=== PATIENT | male | born 1985 | race African-American/Black ===

== ENCOUNTER 2021-11-27 06:32 | Observation (INO) | payer BC ==
[2021-11-25 15:46] LABS: BASOPHILS % 0.4 % (0.0-1.0); EOSINOPHILS # (AUTO) 0.1 (0.0-0.4); EOSINOPHILS % 1.8 % (0.0-6.0); HEMOGLOBIN 13.8 g/dL (14.0-18.0); LYMPHOCYTES # (AUTO) 1.7 (1.0-3.2); LYMPHOCYTES % 36.8 % (18.0-39.1); MEAN CORPUSCULAR HEMOGLOBIN 29.4 pg (28-32); MEAN CORPUSCULAR HGB CONC 32.9 g/dL (31-35); MEAN CORPUSCULAR VOLUME 89.4 fL (81-99); MONOCYTES # (AUTO) 0.3 (0.2-0.8); NEUTROPHILS # (AUTO) 2.5 (2.1-6.9); PLATELET COUNT 199 x10e3/uL (140-360); RED CELL DISTRIBUTION WIDTH 12.8 % (11.7-14.4)
[2021-11-25 15:57] LABS: ANION GAP 14.7 mmol/L (8-16); CALCIUM 9.2 mg/dL (8.4-10.2); CREATININE, SERUM 1.1 mg/dL (0.72-1.25); INR 0.9; POTASSIUM 3.7 mmol/L (3.5-5.1); PROTHROMBIN TIME 12.8 seconds (11.9-14.5)
[2021-11-25 15:58] LABS: PARTIAL THROMBOPLASTIN TIME 27.1 seconds (23.8-35.5)
[~2021-11-27] VITALS: Ht 180.3 cm; Wt 78.5 kg
[2021-11-27] MEDS ORDERED: NAPROXEN250 MG PO (06:52)
[2021-11-27] MEDS ORDERED: SODIUM CHLORIDE 0.9% 50ML 50 ML ONE (07:08)
[2021-11-27] MEDS ORDERED: HYDROCODON-ACE1 EA12 PO (10:38)
[2021-11-27] MEDS ORDERED: ZOLPIDEM TARTRATE 5 MG TAB PO PRN (10:45)
[2021-11-27] MEDS: LACTATED RINGER'S 1,000 ML IV SCH ×2 (10:45→19:05)
[2021-11-27] MEDS ORDERED: CARISOPRODOL 350 MG TAB PO PRN (10:45)
[2021-11-27] MEDS ORDERED: ONDANSETRON HCL INJ 2MG/ML 2ML 2 MG/ML VIAL IV PRN (10:45)
[2021-11-27] MEDS ORDERED: HYDROMORPHONE 2MG/ML 2 MG/ML ML IV PRN (10:45)
[2021-11-27] MEDS ORDERED: OXYCODONE/ACETAMINOPHEN 5-325 1 EACH TABLET PO PRN (10:45)
[2021-11-27] MEDS ORDERED: ACETAMINOPHEN 325 MG TAB PO PRN (10:45)
[2021-11-27] MEDS ORDERED: MAGNESIUM/ALUMINUM/SIMETHICONE 30 ML UDC PO PRN (10:45)
[2021-11-27] MEDS ORDERED: PROMETHAZINE HCL (IM) 25 MG/ML VIAL IM PRN (10:45)
[2021-11-27] MEDS ORDERED: SUGAMMADEX SODIUM 200 MG/2 ML VIAL IV ONE (10:55)
[2021-11-27] MEDS ORDERED: ROCURONIUM BROMIDE 10 MG/ML 5ML VIAL IV ONE (12:28)
[2021-11-27] MEDS ORDERED: POVIDONE IODINE 0.05% 0.05 % ML PO ONE (12:28)
[2021-11-27] MEDS ORDERED: ONDANSETRON HCL INJ 2MG/ML 2ML 2 MG/ML VIAL ONE (12:28)
[2021-11-27] MEDS ORDERED: KETOROLAC TROMETHAMINE 30 MG/ML VIAL ONE (12:28)
[2021-11-27] MEDS ORDERED: LIDOCAINE HCL 2% LOCAL INJ 5 ML SDV VIAL INJ ONE (12:28)
[2021-11-27] MEDS ORDERED: PROPOFOL IV EMULSION 10 MG/ML 20 ML VIAL ONE (12:28)
[2021-11-27] MEDS ORDERED: DEXAMETHASONE SOD PHOS INJ 4 MG/ML SDV ONE (12:28)
[2021-11-27] MEDS ORDERED: SEVOFLURANE INHAL SOLN 250 ML PEN BTL ONE (12:28)
[2021-11-27] MEDS ORDERED: Morphine 2mg Syringe 2 MG/ML SYR IM PRN (12:45)
[2021-11-27 12:51] VITALS: BP 98/49
[2021-11-27] MEDS ORDERED: FENTANYL CITRATE/PF 100MCG/2 ML INJ ONE (13:16)
[2021-11-27] MEDS ORDERED: MIDAZOLAM HCL 2 MG/2 ML VIAL ONE (13:16)
[2021-11-27 15:51] VITALS: BP 98/49
[2021-11-27 16:25] VITALS: BP 126/73
[2021-11-27] MEDS: NAPROXEN 250 MG TAB PO SCH (17:00)
[2021-11-27 20:00] VITALS: BP 125/67
[2021-11-28 00:08] VITALS: BP 116/62
[2021-11-28] MEDS: Cefazolin 1 GM in SODIUM CHLORIDE 0.9% 50ML 50 ML IV SCH ×2 (00:42→09:49)
[2021-11-28] MEDS ORDERED: SODIUM CHLORIDE 0.9% 100 ML ONE (00:59)
[2021-11-28] MEDS: LACTATED RINGER'S 1,000 ML IV SCH ×2 (03:25→11:45)
[2021-11-28 04:00] VITALS: BP 95/80
[2021-11-28 08:14] VITALS: BP 123/59
[2021-11-28] MEDS: NAPROXEN 250 MG TAB PO SCH (09:56)
[2021-11-28 09:58] VITALS: BP 123/59
[2021-11-28 11:49] VITALS: BP 145/79
== END 2021-11-28 12:11 | disposition home or self-care (01) ==
LOC: OR 06:32 → PACU V 10:36 → MED/SURG 12:51
PROVIDERS: ADMIT Neurological Surgery; ATTEND Neurological Surgery
DX: M51.16 Intervertebral disc disorders with radiculopathy, lumbar region (principal); Z20.822 Contact with and (suspected) exposure to COVID-19
CPT/HCPCS: 36415; 63047; 71046; 72020; 80048; 85025; 85610; 85730; 86850; 86900; 88304; 93005; G0378 ×2; J0690 ×2; J1100; J1170; J1885; J2001; J2250; J2405; J2704; J3010; J7050; J7121; U0002